=== PATIENT | male | born 1995 | race Caucasian/White ===

== ENCOUNTER 2017-05-16 17:49 | Emergency (ER) | payer BC, OTHER ==
[~2017-05-16] VITALS: Ht 193 cm; Wt 73.4 kg
[2017-05-16 17:56] VITALS: TEMP 36.7; Ht 193 cm; Wt 73.4 kg
--- NOTE | 2017-05-16 18:29 | EMERGENCY ROOM VISIT NOTE ---
History Report prepared by Rosa: Max Virgen Under the Supervision of: Vianca GarciaO. First contact with patient: 18:01 Chief Complaint: GROIN PAIN Stated Complaint: PAIN IN GROIN/ABD History of Present Illness The patient is a 27 year old male who presents to the Emergency Room with complaints of on and off left testicular pain starting around noon today. The patient states that he was sitting at his desk not doing anything, and he started to get this pain. The patient states that the pain is radiating into his hip, and he had some back pain. He states that he has had similar pain in the past, though it usually dissipates within an hour or two, and he states that it usually happens from sitting. He states that he has never had them evaluated recently, and he checks his testicles every two months. The patient denies any lumps, swelling, change in urine, change in bowel movements, rashes, or sores. The patient additionally denies any concern for STDs, new partners or exposure, discomfort with intercourse, blood in his semen, and pain with ejaculation. The patient states that he has been drinking one cup of coffee per day, and this is new for him, though he denies any change in activity. The patient's mother states that the patient's brother had an inguinal hernia when he was born, though there have been no other issues. Pt denies headache, change in vision, fevers, chest pain, shortness of breath, nausea, vomiting, diarrhea, pain with urination, and melena. Source of History: patient, parent Onset: noon Position: other (testicle) Timing: other (on and off) Associated Symptoms: + back pain Note: Associated symptoms: hip pain Review of Systems See HPI for pertinent positives & negatives. A total of 10 systems reviewed and were otherwise negative. Past Medical & Surgical Medical Problems: (1) Anemia (2) Bone spur Family History FH: heart disease Inguinal hernia Social History Smoking Status: Never Smoker Marital Status: in relationship Housing Status: lives alone Occupation Status: employed Current/Historical Medications Scheduled PRN Fluticasone Propionate (Nasal) (Flonase Allergy Relief), 2 SPRAYS JAVED DAILY PRN for Nasal Congestion Physical Exam Vital Signs Date Time Temp Pulse Resp B/P (MAP) Pulse Ox O2 Delivery O2 Flow Rate FiO2 05/16/17 20:39 85 18 100 05/16/17 20:31 121/70 05/16/17 20:24 73 99 05/16/17 20:19 97 16 100 Room Air 05/16/17 20:18 115/73 05/16/17 17:56 36.7 68 18 119/74 100 Room Air Physical Exam GENERAL: alert, well appearing, well nourished, no distress, non-toxic EYE EXAM: normal conjunctiva, PERRL and EOM's grossly intact OROPHARYNX: no exudate, no erythema, lips, buccal mucosa, and tongue normal and mucous membranes are moist NECK: supple, no nuchal rigidity, no adenopathy, non-tender LUNGS: Clear to auscultation. Normal chest wall mechanics HEART: no murmurs, S1 normal and S2 normal ABDOMEN: abdomen soft, non-tender, normo-active bowel sounds, no masses, no rebound or guarding. BACK: Back is symmetrical on inspection and there is no deformity, no midline tenderness, no CVA tenderness. : Fab 5. Bilaterally descended testicles. Circumcised. No penile discharge. No inguinal lymphadenopathy. No rash or sores. No scrotal edema Tenderness with palpation of the left testicle. Normal sized testicles. No masses. SKIN: no rashes and no bruising UPPER EXTREMITIES: upper extremities are grossly normal. LOWER EXTREMITIES: No pitting edema. NEURO EXAM: Normal sensorium, cranial nerves II-XII grossly intact, normal speech, no gross weakness of arms, no gross weakness of legs. Gross sensation intact. Medical Decision & Procedures ER Provider Diagnostic Interpretation: Radiology results have been interpreted by the radiologist and reviewed by me. (TESTICULAR) SCROTUM-CONT HISTORY: Pain pain in left testicle COMPARISON: None. FINDINGS: Right testis: Maximum dimension 3.0 x 5.3 cm. Normal vascular flow. 4 mm epididymal cyst. Left testis: Maximum dimension 5.2 cm. Normal vascular flow. Small left varicocele IMPRESSION: 1. Normal testes bilaterally. 2. Normal vascular flow bilaterally. 3. Small left varicocele. 4. Small right epididymal cyst. The above report was generated using voice recognition software. It may contain grammatical, syntax or spelling errors. Electronically signed by: Ahser Quinn M.D. 05/16/2017 8:15 PM Dictated Date/Time: 05/16/2017 8:14 PM Laboratory Results Test 05/16/17 18:45 Urine Color DK YELLOW Urine Appearance CLEAR (CLEAR) Urine pH 5.0 (4.5-7.5) Urine Specific [place] 1.031 (1.000-1.030) Urine Protein 1+ (NEG) Urine Glucose (UA) NEG (NEG) Urine Ketones TRACE (NEG) Urine Occult Blood NEG (NEG) Urine Nitrite NEG (NEG) Urine Bilirubin 1+ (NEG) Urine Urobilinogen NEG (NEG) Urine Leukocyte Esterase NEG (NEG) Urine WBC (Auto) 1-5 /hpf (0-5) Urine RBC (Auto) 0-4 /hpf (0-4) Urine Hyaline Casts (Auto) 1-5 /lpf (0-5) Urine Epithelial Cells (Auto) 0-5 /lpf (0-5) Urine Bacteria (Auto) NEG (NEG) Laboratory results per my review. ED Course 1800: The patient was evaluated in room A3. A complete history and physical exam was performed. 2028: Upon reevaluation, the patient is feeling better and is having no further pain. I discussed the findings and the treatment plan with the patient. He verbalizes agreement and understanding. He was discharged home. Medical Decision Differential diagnosis: Etiologies such as torsion, mass, infection, hernia, hydrocele, epididymitis, trauma, intra-abdominal process, as well as others were entertained. Pt well appearing here and pain resolved spontaneously. Discussed with patient follow-up with urology, symptoms to watch and return for, use of supportive undergarments, he verbalized understanding was agreeable with plan. Doubt additional GI or pathology. Doubt STD. Medication Reconcilliation Current Medication List: was personally reviewed by me Blood Pressure Screening Patient's blood pressure: Normal blood pressure Impression Primary Impression: Testicular pain, left Additional Impressions: Varicocele Epididymal cyst Scribe Attestation The scribe's documentation has been prepared under my direction and personally reviewed by me in its entirety. I confirm that the note above accurately reflects all work, treatment, procedures, and medical decision making performed by me. Departure Information Dispostion Home / Self-Care Forms HOME CARE DOCUMENTATION FORM, IMPORTANT VISIT INFORMATION, WORK / SCHOOL INSTRUCTIONS Patient Instructions My [facility], Varicocele Additional Instructions Please follow-up with urology as a precaution. Please wear more supportive undergarments. If you develop any worsening pain, fevers, abdominal pain, back pain, notice a change in your urine, notice blood in your semen, or you've any other new concerns, please return the emergency room. Problem Qualifiers
[2017-05-16] MEDS ORDERED: FLUT0.15 NAE (18:45)
[2017-05-16 19:02] LABS: URINE APPEARANCE CLEAR (CLEAR); URINE COLOR DK YELLOW; URINE EPITHELIAL CELL AUTO 0-5 /lpf (0-5); URINE NITRITE NEG (NEG); URINE SPECIFIC GRAVITY 1.031 (1.000-1.030); UROBILINOGEN NEG (NEG); ZZUR CULT IF INDIC CLEAN CATCH NO
[2017-05-16 19:03] LABS: URINE BILIRUBIN 1+ (NEG)
[2017-05-16 19:05] LABS: MANUAL MICROSCOPIC REQUIRED? NO; REVIEW REQ? NO
--- NOTE | 2017-05-16 20:16 | DIAGNOSTIC IMAGING REPORT ---
(TESTICULAR) SCROTUM-CONT HISTORY: Pain pain in left testicle COMPARISON: None. FINDINGS: Right testis: Maximum dimension 3.0 x 5.3 cm. Normal vascular flow. 4 mm epididymal cyst. Left testis: Maximum dimension 5.2 cm. Normal vascular flow. Small left varicocele IMPRESSION: 1. Normal testes bilaterally. 2. Normal vascular flow bilaterally. 3. Small left varicocele. 4. Small right epididymal cyst. The above report was generated using voice recognition software. It may contain grammatical, syntax or spelling errors. Electronically signed by: Asher Quinn M.D. 05/16/2017 8:15 PM Dictated Date/Time: 05/16/2017 8:14 PM
[2017-05-16 20:31] VITALS: BP 121/70
[2017-05-16 20:39] VITALS: PULSE 85; O2SAT 100
== END 2017-05-16 20:53 | disposition home or self-care (01) ==
LOC: EDBD 17:51 → C.EDB 17:51 → C.EDA 20:53
DX: N50.812 Left testicular pain (principal); I86.1 Scrotal varices; N50.3 Cyst of epididymis; Z82.49 Family history of ischemic heart disease and other diseases of the circulatory system; Z83.79 Family history of other diseases of the digestive system